=== PATIENT | female | born 1965 | race Caucasian/White ===

== ENCOUNTER 2017-03-27 20:17 | Emergency (ER) | payer OTHER ==
[2017-03-27 20:25] VITALS: BP 121/76
[2017-03-27] MEDS ORDERED: Sulfamethox/Trimethoprim DS 800/160* TAB PO ONE (20:54)
[2017-03-27] MEDS ORDERED: Phenazopyridine TAB* 100 MG PO ONE (20:55)
--- NOTE | 2017-03-27 21:11 | UC ---
Complaint Female HPI - HPI Summary HPI Summary: URINARY BURNING X 1 MONTH, NO FREQUENCY OR URGENCY, NO ABDOMINAL PAIN , NO FLANK PAIN , NO FEVER, OR CHILLS, NO VAGINAL DISCHARGE - History Of Current Complaint Chief Complaint: UCGU Stated Complaint: UTI Time Seen by Provider: 03/27/17 20:21 Hx Obtained From: Patient ?: No Onset/Duration: Gradual Onset, Lasting Weeks - 4, Still Present Timing: Constant Severity Initially: Moderate Severity Currently: Moderate Pain Intensity: 8 Pain Scale Used: 0-10 Numeric Character: Burning Aggravating Factor(s): Urination Alleviating Factor(s): Nothing Associated Signs And Symptoms: Negative: Fever, Back Pain, Vaginal Bleeding/ Discharge, Vaginal Discharge, Nausea, Vomiting(# Of Episodes =), Genital Swelling, Genital Blisters, Retained Foregin Body (Specify) - Allergies/Home Medications Allergies/Adverse Reactions: Allergies Allergy/AdvReac Type Severity Reaction Status Date / Time Amoxicillin Allergy Intermediate Rash Verified 03/27/17 20:54 Sulfamethoxazole AdvReac Intermediate "numbness" Verified 03/27/17 20:25 w/Trimethoprim [From ] PMH/Surg Hx/FS Hx/Imm Hx Previously Healthy: Yes - Surgical History Surgical History: Yes Surgery Procedure, Year, and Place: 3 c-sections. gallbladder. ankle ORIF reduction. abscess/stomach. tonsillectomy - Family History Known Family History: Positive: Hypertension - Social History Alcohol Use: None Substance Use Type: None Smoking Status (MU): Never Smoked Tobacco - Immunization History Most Recent Influenza Vaccination: no Review of Systems Constitutional: Negative Skin: Negative Eyes: Negative ENT: Negative Respiratory: Negative All Other Systems Reviewed And Are Negative: Yes Physical Exam Triage Information Reviewed: Yes Appearance: Well-Appearing, No Pain Distress, Well-Nourished Vital Signs: Initial Vital Signs Temp 98.4 F 03/27/17 20:21 Pulse 83 03/27/17 20:21 Resp 15 03/27/17 20:21 BP 121/76 03/27/17 20:21 Pulse Ox 99 03/27/17 20:21 Vital Signs Reviewed: Yes Eyes: Positive: Conjunctiva Clear ENT: Positive: Normal ENT inspection, Hearing grossly normal, Pharynx normal Neck exam: Normal Neck: Positive: Supple, Nontender, No Lymphadenopathy Respiratory: Positive: Chest non-tender, Lungs clear, Normal breath sounds Cardiovascular: Positive: RRR, No Murmur, Pulses Normal Abdominal Exam: Normal Abdomen Description: Positive: Nontender, Soft. Negative: CVA Tenderness (R), CVA Tenderness (L), Distended, Guarding Bowel Sounds: Positive: Present Complaint Female Dx - Differential Dx/Diagnosis Provider Diagnoses: DYSURIA Discharge - Discharge Plan Condition: Stable Disposition: HOME Prescriptions: Fluconazole [Diflucan 150 MG (NF)] 150 mg PO ONCE #2 tab Phenazopyridine 200 mg (NF) [Pyridium 200 MG tab *] 200 mg PO TID #6 tab Sulfamethox/Trimethoprim DS* [Bactrim DS 800/160 TAB*] 1 tab PO BID #20 tab Patient Education Materials: Dysuria (ED) Referrals: Kirsten Clinton MD [Primary Care Provider] - 7 Days Additional Instructions: will send for urine culture, call the office in 2 days for the results bactrim ds 2x per day for 10 days
--- NOTE | 2017-03-30 08:28 | UC ---
Progress - Progress Note Progress Note: Neg Urine Cx -- stop antibiotics. Recheck with PCP prn
== END 2017-03-27 21:03 | disposition home or self-care (01) ==
LOC: UCCORT 20:17
DX: R30.0 Dysuria (principal)
CPT/HCPCS: 81003; 87086; 99212; A9270-GY; G0463